=== PATIENT | male | born 1975 | race Caucasian/White ===

== ENCOUNTER 2019-01-20 15:00 | Emergency (ER) | payer MEDICAID ==
[~2019-01-20] VITALS: Ht 165.1 cm; Wt 85.0 kg
[2019-01-20] MEDS ORDERED: LIDOCAINE HCL 1% 20ML VIAL (Pyxis) INJ INFIL ONE (19:00)
[2019-01-20 20:18] VITALS: BP 129/61
== END 2019-01-20 20:24 | disposition left against medical advice (07) ==
LOC: ER 16:21
DX: S61.316A Laceration without foreign body of right little finger with damage to nail, initial encounter (principal); W26.0XXA Contact with knife, initial encounter; Y93.89 Activity, other specified; Y92.89 Other specified places as the place of occurrence of the external cause; Y99.8 Other external cause status
CPT/HCPCS: 99283; J3490